=== PATIENT | male | born 1940 | race African-American/Black ===

== ENCOUNTER 2019-12-13 12:06 | Emergency (ER) | payer MEDICARE, OTHER ==
[~2019-12-13] VITALS: Ht 172.7 cm; Wt 80.0 kg
[2019-12-13] MEDS ORDERED: IOHEXOL-350 100 ML BOTTLE ONE (12:23)
[2019-12-13 12:43] LABS: BASOPHILS % 0.8 % (0.0-2.0); EOSINOPHILS % 2.7 % (0.0-5.0); HEMOGLOBIN. 15.4 g/dL (14.0-18.0); LYMPHOCYTES % 22.3 % (20.0-50.0); MEAN CORPUSCULAR HEMOGLOBIN 31.2 pg (28.0-32.0); MEAN CORPUSCULAR VOLUME 93.3 fL (80.0-94.0); MEAN PLATELET VOLUME 7.8 fl (7.4-10.4); MONOCYTES % 9.6 % (2.0-8.0); NEUTROPHILS % 64.6 % (40.0-76.0); PLATELET 235 x1000/uL (130-400); RED BLOOD CELL COUNT 4.93 mill/uL (4.7-6.1)
[2019-12-13 12:48] LABS: CHLORIDE 103 mEq/L (98-107)
[2019-12-13 12:52] LABS: PARTIAL THROMBOPLASTIN TIME 35.1 sec (23.4-31.0)
[2019-12-13 12:53] LABS: ETHANOL BLOOD < 10 mg/dL
[2019-12-13 12:56] LABS: LDL CHOLESTEROL 149 mg/dL (5-100)
[2019-12-13] MEDS ORDERED: CLOPIDOGREL 75MG TABLET PO ONE (13:15)
[2019-12-13] MEDS ORDERED: ASPIRIN 81MG TABLET PO ONE (13:15)
[2019-12-13] MEDS ORDERED: SODIUM CHLORIDE 0.9% 1,000 ML IV ONE (13:38)
[2019-12-13 14:45] VITALS: BP 168/97
== END 2019-12-13 14:47 | disposition short-term general hospital (02) ==
LOC: ER 12:06 → EDBD 12:06 → ER 14:47
DX: I63.232 Cerebral infarction due to unspecified occlusion or stenosis of left carotid arteries (principal); I10 Essential (primary) hypertension; I48.91 Unspecified atrial fibrillation; F19.10 Other psychoactive substance abuse, uncomplicated
CPT/HCPCS: 36415; 70450; 70496; 70498; 71045; 80053; 80320; 82962; 83721; 84484; 85025; 85610; 85730; 86850; 86900; 86901; 93005; 96360; 99285; J7030; Q9967; G0480

== ENCOUNTER 2024-06-12 16:52 | Emergency (ER) | payer OTHER ==
[~2024-06-12] VITALS: Ht 180.3 cm; Wt 77.0 kg
[2024-06-12 16:53] VITALS: O2SAT 100
[2024-06-12] MEDS ORDERED: CEFEPIME 1GM IN DEXT 5% 50ML IV ONE (17:15)
[2024-06-12] MEDS: ACETAMINOPHEN 325MG TABLET PO ONE (17:15)
[2024-06-12] MEDS ORDERED: VANCOMYCIN 1000MG/250ML 250 ML IV ONE (17:15)
[2024-06-12] MEDS ORDERED: VANCOMYCIN 1G PREMIX 250 ML IV NR (17:15)
[2024-06-12 17:45] LABS: HEMATOCRIT. 36.3 % (42.0-52.0); HEMOGLOBIN. 10.7 g/dL (14.0-18.0); MEAN CORPUSCULAR HEMOGLOBIN 23.3 pg (28.0-32.0); MEAN CORPUSCULAR HGB CONC 29.5 g/dL (31.0-37.0); MEAN PLATELET VOLUME 6.4 fl (7.4-10.4); PLATELET 329 x1000/uL (130-400); RED BLOOD CELL COUNT 4.59 mill/uL (4.7-6.1); RED CELL DISTRIBUTION WIDTH 23.4 % (11.6-14.6); WHITE BLOOD COUNT 9.1 x1000/uL (4.5-11.0)
[2024-06-12 17:49] LABS: DIFFERENTIAL COMMENT 1
[2024-06-12 17:50] LABS: CHLORIDE 106 mEq/L (98-107); POTASSIUM 3.9 mEq/L (3.5-5.1)
[2024-06-12 17:51] LABS: CARBON DIOXIDE 25 mEq/L (21-32); SODIUM 142 mEq/L (136-145)
[2024-06-12 17:52] LABS: CALCIUM 9.5 mg/dL (8.7-10.4); PROTHROMBIN TIME 11.1 sec (9.6-11.0)
[2024-06-12 17:56] LABS: CREATININE 1.4 mg/dL (0.6-1.3); GLUCOSE 128 mg/dL (70-105)
[2024-06-12 17:57] LABS: UREA NITROGEN BLOOD 21 mg/dL (9-23)
[2024-06-12 17:58] LABS: ALANINE AMINOTRANSFERASE 9 IU/L (10-49); ALBUMIN 4.2 g/dL (3.2-4.8); ASPARTATE AMINOTRANSFERASE 14 IU/L (<34)
[2024-06-12 17:59] LABS: BILIRUBIN DIRECT 0.3 mg/dL (<=3.0); PROTEIN TOTAL 8.7 g/dL (6.0-8.3)
[2024-06-12] MEDS ORDERED: CEFEPIME 1GM/50ML 50 ML IV NR (18:00)
[2024-06-12] MEDS: VANCOMYCIN 1G PREMIX 200 ML IV NR (18:04)
[2024-06-12 18:06] VITALS: BP 113/82; PULSE 95; RESP 18; O2SAT 100
[2024-06-12 22:45] LABS: ANISOCYTOSIS 2+; HYPOCHROMASIA 1+; MICROCYTOSIS 1+; PLATELET ESTIMATE NORMAL
== END 2024-06-12 19:10 | disposition left against medical advice (07) ==
LOC: ER 16:52 → CANBEDREQ 18:56 → ER 19:10
DX: A41.9 Sepsis, unspecified organism (principal); R65.20 Severe sepsis without septic shock; I11.0 Hypertensive heart disease with heart failure; I05.9 Rheumatic mitral valve disease, unspecified; I48.91 Unspecified atrial fibrillation; R09.02 Hypoxemia
CPT/HCPCS: 99291; 96365; 80076; 80048; 83880; 83605; 85025; 85610; 87040; 87186; 87077; 36415; 84145; 71045; 93005; J3370; J0692